=== PATIENT | male | born 1980 | race Caucasian/White ===

== ENCOUNTER → 2025-02-12 07:00 | Outpatient (CLI) | payer OTHER, SELFPAY ==
--- NOTE | 2025-02-12 07:03 | DI.US.S_ITS ---
PROCEDURE: US SCROTUM INDICATIONS: left testicle pain TECHNIQUE: Real-time scanning was performed of the scrotum and testicles, with image documentation. Color and pulse Doppler interrogation was performed of both testicles. COMPARISON: None. FINDINGS: Right: Testicle is normal in size at 4.8 x 3.5 x 2 point cm, and homogenous in echotexture. Epididymis is normal in overall size and morphology. No hydrocele or varicoceles. Overlying scrotal skin is normal in thickness. Left: Testicle is normal in size at 4.5 x 3.3 x 2.6 cm, and homogeneous in echotexture. Epididymis demonstrates 2 simple cysts the largest measuring 9 mm. No varicoceles. Mild hydrocele. Overlying scrotal skin is normal in thickness. Doppler: Color and pulse Doppler demonstrate normal and symmetric arterial flow in both testicles. IMPRESSION: Mild left hydrocele. Simple cysts within the left epididymal head. Dictated by: Cristine Harris M.D. on 02/12/2025 at 14:29 Approved by: Cristine Harris M.D. on 02/12/2025 at 14:31
== END ==
PROVIDERS: PCP Family Medicine; Referring Provider Family Medicine; Visit Provider Family Medicine
DX: N50.812 Left testicular pain (principal); N43.3 Hydrocele, unspecified; N50.3 Cyst of epididymis
CPT/HCPCS: 76870; 93975